=== PATIENT | female | born 1980 | race Caucasian/White ===

== ENCOUNTER 2020-09-20 07:48 | Outpatient (CLI) | payer OTHER, SELFPAY ==
--- NOTE | 2020-09-20 07:53 | MM_ITS ---
WS: [id number] BILATERAL SCREENING DIGITAL MAMMOGRAM WITH CAD HISTORY: SCREENING COMPARISON: 07/28/2019 Bilateral CC and MLO views submitted. Computer aided detection analyzed. Breast composition: There are scattered areas of fibroglandular density. No suspicious masses, microc alcifications or architectural distortion. Benign calcifications in each breast. MM/[place] [id number] IMPRESSION: BI-RADS: 2-Benign FOLLOW UP: 1 Year Follow-up
== END 2020-09-20 07:49 | disposition home or self-care (01) ==
LOC: RADSHAW 07:50
PROVIDERS: PCP Family Medicine; Visit Provider Family Medicine
DX: Z12.31 Encounter for screening mammogram for malignant neoplasm of breast (principal)
CPT/HCPCS: 77067

== ENCOUNTER 2021-01-29 12:45 | Emergency (ER) | payer OTHER, SELFPAY ==
--- NOTE | 2021-01-29 12:53 | XR_ITS ---
WS: [id number] Portable AP upright chest, 01/29/2021 Clinical Data: chest pain Comparison: None. Findings: No nodules, masses or effusions are seen. The heart is normal. The pulmonary vascularity is not increased. No pneumonia or pneumothorax is seen. XR/XR chest 1V portable [id number] Impression: Negative chest.
[2021-01-29 13:21] VITALS: BP 150/89; PULSE 86; RESP 16; TEMP 36.7; O2SAT 98; BMI 37.0
--- NOTE | 2021-01-29 14:53 | ECG_ITS ---
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 Measurements Intervals [place] Rate: 71 P: 32 MN: 137 QRS: 3 QRSD: 84 T: 32 QT: 395 QTc: 432 Interpretive Statements SINUS RHYTHM LOW QRS VOLTAGE IN PRECORDIAL LEADS [QRS DEFLECTION < 1.0 mV IN CHEST LEADS] POSSIBLE ANTERIOR MYOCARDIAL INFARCTION [30 ms Q WAVE IN V3/V4, OR R < 0.2 mV IN V4], PROBABLY OLD No previous ECG available for comparison Electronically Signed On 01-29-2021 16:31:26 CDT by Charlette Guzman M.D. [email or web address]/store/OM/[id number]
--- NOTE | 2021-01-29 16:04 | W.ED.CHESTPA ---
Documented by User: Yehuda Simpson DO 01/31/21 06:35 HPI - Chest Pain General: Chief Complaint: Chest Pain Stated Complaint: chest tightness, heartburn pain Time Seen by Provider: 01/29/21 15:45 History of Present Illness: HPI narrative: 40-year-old female presents emergency room complaining of epigastric and chest pain that began last night around 11:00 it persisted until now she is tried several vyyn-shn-qcillax for heartburn and stomach upset with no relief. He has a family history of early cardiac disease she contacted her primary and advised her to come here. She is on lisinopril for hypertension she is not previously had cardiac evaluation she has no hyperlipidemia. She is not diabetic and does not smoke. MD complaint: chest discomfort Pertinent past history: coronary artery disease (Early family history) Onset (ago): hour(s) Timing of current episode: episodic Prior episodes: No Onset: during rest Pain location: substernal and epigastric Pain radiation: none Severity: mild Quality: tightness Relieving factors: nothing Exacerbating factors: nothing Associated symptoms: Deny abdominal pain, diaphoresis, dyspnea, fever(s), leg edema, nausea, palpitations, sense of impending doom, syncope or vomiting Treatment prior to arrival: none Review of Systems Const: Denies: fever(s) or diaphoresis ENMT: Denies: throat pain, ear or mastoid pain, nasal discharge or nasal congestion Card: Denies: palpitations or syncope Resp: Denies: dyspnea GI: Denies: abdominal pain, nausea or vomiting : Denies: flank pain, difficulty voiding, dysuria, urinary frequency or urinary urgency Skin/Breast: Denies: rash or pruritus [facility] Female Reproductive History: Date of last menstrual period: 01/25/21 Physical Exam Const: COMMON NORMALS: no acute distress GENERAL APPEARANCE: cooperative and comfortable ORIENTATION/CONSCIOUSNESS: Yes awake, Yes oriented to person, Yes oriented to place and Yes oriented to time HENMT: COMMON NORMALS: normocephalic, atraumatic, hearing grossly normal bilaterally and external ears normal HEAD & SCALP: normocephalic and atraumatic EXTERNAL EAR: Yes external ears normal Neck/C-Spine: COMMON NORMALS: no JVD Resp: COMMON NORMALS: normal respiratory effort, No retractions, No use of accessory muscles and clear to auscultation bilaterally AUSCULTATION: clear to auscultation bilaterally Cardio: COMMON NORMALS: no JVD, regular rate, regular rhythm and No murmurs present (Cardio) RATE: regular rate RHYTHM: regular rhythm GI: COMMON NORMALS: Soft to palpation and No hepatosplenomegaly present AUSCULTATION: Yes normoactive bowel sounds PALPATION: Yes Soft to palpation, No Tenderness to palpation present (GI), No Guarding due to palpation present (GI) and Yes No hepatosplenomegaly present Extremity: COMMON NORMALS: normal to inspection, capillary refill normal, no clubbing, cyanosis or edema, no calf tenderness and no pedal edema Neuro: SENSORIUM/ORIENTATION: Yes oriented to person, Yes oriented to place and Yes oriented to time Skin: COMMON NORMALS: no rashes or lesions noted GENERAL SKIN EXAM: no rashes or lesions noted Course Vital Signs: Vital signs: Vital Signs Temperature 98.1 F 01/29/21 21:31 Pulse Rate 64 01/29/21 21:31 Respiratory Rate 19 H 01/29/21 21:31 Blood Pressure 146/92 01/29/21 21:31 Pulse Oximetry 98 01/29/21 21:31 MDM - Chest Pain MDM Narrative: Medical decision making narrative: Patient initially seen by laboratory tests ordered. She is stable EKG unremarkable. Care turned over to Dr. Watson see his notes for final diagnosis and disposition Lab Data: Labs: Lab Results 01/29/21 01/29/21 01/29/21 Range/Units 16:19 16:19 16:19 WBC 7.5 (4.0-10.0) 10^3/ uL RBC 4.71 (4.1-5.3) 10^6/u L Hgb 14.3 (11.5-15.3) g/dL Hct 42.3 (37.0-47.0) % MCV 89.8 (81-99) fL MCH 30.4 (28.0-34.0) pg MCHC 33.8 (30.0-36.0) g/dL RDW 12.7 (12.1-15.1) % Plt Count 361 (130-400) 10^3/c mm MPV 9.3 (7.4-10.4) fL Neut % (Auto) 61.1 % Lymph % (Auto) 30.9 % [place] % (Auto) 5.9 % Eos % (Auto) 1.1 % Baso % (Auto) 0.7 % Neut # (Auto) 4.61 (1.8-7.7) 10^3/u L Lymph # (Auto) 2.3 (0.8-4.8) 10^3/u L [place] # (Auto) 0.4 (0.2-0.9) 10^3/u L Eos # (Auto) 0.1 (0.0-0.8) 10^3/u L Baso # (Auto) 0.1 (0.0-0.1) 10^3/u L Nucleated RBC % (a uto) 0 % Nucleated RBCs # 0.0 /100WBC Sodium Cancelled Potassium Cancelled Chloride Cancelled Carbon Dioxide Cancelled Anion Gap Cancelled BUN Cancelled Creatinine Cancelled GFR Calculation Cancelled Glucose Cancelled Calculated Osmolal ity Cancelled Calcium Cancelled Total Bilirubin Cancelled AST Cancelled ALT Cancelled Alkaline Phosphata se Cancelled Troponin T Baselin e Cancelled Troponin T 120 Min tolowa dee-ni' (0-10) ng/L Delta Troponin T (0-10) ABS# Total Protein Cancelled Albumin Cancelled Globulin Cancelled 01/29/21 01/29/21 01/29/21 Range/Units 17:28 17:28 20:10 WBC (4.0-10.0) 10^3/ uL RBC (4.1-5.3) 10^6/u L Hgb (11.5-15.3) g/dL Hct (37.0-47.0) % MCV (81-99) fL MCH (28.0-34.0) pg MCHC (30.0-36.0) g/dL RDW (12.1-15.1) % Plt Count (130-400) 10^3/c mm MPV (7.4-10.4) fL Neut % (Auto) % Lymph % (Auto) % [place] % (Auto) % Eos % (Auto) % Baso % (Auto) % Neut # (Auto) (1.8-7.7) 10^3/u L Lymph # (Auto) (0.8-4.8) 10^3/u L [place] # (Auto) (0.2-0.9) 10^3/u L Eos # (Auto) (0.0-0.8) 10^3/u L Baso # (Auto) (0.0-0.1) 10^3/u L Nucleated RBC % (a uto) % Nucleated RBCs # /100WBC Sodium 135 L Potassium 4.2 Chloride 101 Carbon Dioxide 22 Anion Gap 16.2 BUN 10 Creatinine 0.6 GFR Calculation 109.6 Glucose 99 Calculated Osmolal ity 279 L Calcium 9.0 Total Bilirubin 0.3 AST 25 ALT 24 Alkaline Phosphata se 53 Troponin T Baselin e 6 Troponin T 120 Min tolowa dee-ni' 6.00 (0-10) ng/L Delta Troponin T 0 (0-10) ABS# Total Protein 6.9 Albumin 4.2 Globulin 2.7 Discharge Plan Discharge Patient Disposition: Home Clinical Impression: Atypical chest pain Condition: Stable Prescriptions: New aspirin 81 mg tablet,delayed release (DR/EC) 81 mg PO DAILY Qty: 30 RF: 0 amlodipine 2.5 mg tablet 2.5 mg PO DAILY Qty: 30 RF: 0 No Action lisinopril 5 mg Tablet 5 mg PO DAILY RF: 0 Discharge Orders: Discharge ED (Routine); Ordered 01/29/21 Ordered By: Rianna Watson Referrals: Deyanira Palumbo MD [Primary Care Provider] - 1-3 days Discharge Diet: Usual diet Discharge Activity: Limit activity as instructed Patient Instructions: Chest Pain (ED) Activity Restrictions/Additional Instructions: Aspirin daily 81 mg, add amlodipine 2.5 p.o. daily. No exertional activities. Case management will call to set up a Lexiscan sestamibi stress test. Coding Level of Care Code ED Make Ready Mechanic for g Fwd Exam Comprehensive Documented by User: Rianna Watson MD 01/29/21 21:23 HPI - Chest Pain General: Chief Complaint: Chest Pain Stated Complaint: chest tightness, heartburn pain Time Seen by Provider: 01/29/21 15:45 Course Vital Signs: Vital signs: Vital Signs Temperature 98.1 F 01/29/21 21:31 Pulse Rate 64 01/29/21 21:31 Respiratory Rate 19 H 01/29/21 21:31 Blood Pressure 146/92 01/29/21 21:31 Pulse Oximetry 98 01/29/21 21:31 MDM - Chest Pain MDM Narrative: Medical decision making narrative: Patient presents here with chest pain is atypical in nature. Her initial repeat troponins and EKGs and x-ray are all normal. She is stable for discharge and is to follow-up with PCP and return if worsening. She understands and agrees to plan. Lab Data: Labs: Lab Results 01/29/21 01/29/21 01/29/21 Range/Units 16:19 16:19 16:19 WBC 7.5 (4.0-10.0) 10^3/ uL RBC 4.71 (4.1-5.3) 10^6/u L Hgb 14.3 (11.5-15.3) g/dL Hct 42.3 (37.0-47.0) % MCV 89.8 (81-99) fL MCH 30.4 (28.0-34.0) pg MCHC 33.8 (30.0-36.0) g/dL RDW 12.7 (12.1-15.1) % Plt Count 361 (130-400) 10^3/c mm MPV 9.3 (7.4-10.4) fL Neut % (Auto) 61.1 % Lymph % (Auto) 30.9 % [place] % (Auto) 5.9 % Eos % (Auto) 1.1 % Baso % (Auto) 0.7 % Neut # (Auto) 4.61 (1.8-7.7) 10^3/u L Lymph # (Auto) 2.3 (0.8-4.8) 10^3/u L [place] # (Auto) 0.4 (0.2-0.9) 10^3/u L Eos # (Auto) 0.1 (0.0-0.8) 10^3/u L Baso # (Auto) 0.1 (0.0-0.1) 10^3/u L Nucleated RBC % (a uto) 0 % Nucleated RBCs # 0.0 /100WBC Sodium Cancelled Potassium Cancelled Chloride Cancelled Carbon Dioxide Cancelled Anion Gap Cancelled BUN Cancelled Creatinine Cancelled GFR Calculation Cancelled Glucose Cancelled Calculated Osmolal ity Cancelled Calcium Cancelled Total Bilirubin Cancelled AST Cancelled ALT Cancelled Alkaline Phosphata se Cancelled Troponin T Baselin e Cancelled Troponin T 120 Min tolowa dee-ni' (0-10) ng/L Delta Troponin T (0-10) ABS# Total Protein Cancelled Albumin Cancelled Globulin Cancelled 01/29/21 01/29/21 01/29/21 Range/Units 17:28 17:28 20:10 WBC (4.0-10.0) 10^3/ uL RBC (4.1-5.3) 10^6/u L Hgb (11.5-15.3) g/dL Hct (37.0-47.0) % MCV (81-99) fL MCH (28.0-34.0) pg MCHC (30.0-36.0) g/dL RDW (12.1-15.1) % Plt Count (130-400) 10^3/c mm MPV (7.4-10.4) fL Neut % (Auto) % Lymph % (Auto) % [place] % (Auto) % Eos % (Auto) % Baso % (Auto) % Neut # (Auto) (1.8-7.7) 10^3/u L Lymph # (Auto) (0.8-4.8) 10^3/u L [place] # (Auto) (0.2-0.9) 10^3/u L Eos # (Auto) (0.0-0.8) 10^3/u L Baso # (Auto) (0.0-0.1) 10^3/u L Nucleated RBC % (a uto) % Nucleated RBCs # /100WBC Sodium 135 L Potassium 4.2 Chloride 101 Carbon Dioxide 22 Anion Gap 16.2 BUN 10 Creatinine 0.6 GFR Calculation 109.6 Glucose 99 Calculated Osmolal ity 279 L Calcium 9.0 Total Bilirubin 0.3 AST 25 ALT 24 Alkaline Phosphata se 53 Troponin T Baselin e 6 Troponin T 120 Min tolowa dee-ni' 6.00 (0-10) ng/L Delta Troponin T 0 (0-10) ABS# Total Protein 6.9 Albumin 4.2 Globulin 2.7 EKG Data^: EKG 1: Attestation: I personally reviewed and interpreted this EKG as follows: EKG interpretation date: 01/29/21 EKG interpretation time: 20:02 Interpretation: nsr hr [address] or t wave abnormalities qrs 93 qtc 394 Discharge Plan Discharge Patient Disposition: Home Clinical Impression: Atypical chest pain Condition: Stable Prescriptions: New aspirin 81 mg tablet,delayed release (DR/EC) 81 mg PO DAILY Qty: 30 RF: 0 amlodipine 2.5 mg tablet 2.5 mg PO DAILY Qty: 30 RF: 0 No Action lisinopril 5 mg Tablet 5 mg PO DAILY RF: 0 Discharge Orders: Discharge ED (Routine); Ordered 01/29/21 Ordered By: Rianna Watson Referrals: Deyanira Palumbo MD [Primary Care Provider] - 1-3 days Discharge Diet: Usual diet Discharge Activity: Limit activity as instructed Patient Instructions: Chest Pain (ED) Activity Restrictions/Additional Instructions: Aspirin daily 81 mg, add amlodipine 2.5 p.o. daily. No exertional activities. Case management will call to set up a Lexiscan sestamibi stress test. Coding Level of Care Code ED Make Ready Mechanic for Chg Fwd Exam Comprehensive
[2021-01-29 16:37] LABS: Basophils # 0.1 10^3/uL (0.0-0.1); Basophils % 0.7 %; Eosinophils # 0.1 10^3/uL (0.0-0.8); Eosinophils % 1.1 %; Hematocrit 42.3 % (37.0-47.0); Hemoglobin 14.3 g/dL (11.5-15.3); Lymphocytes # 2.3 10^3/uL (0.8-4.8); Lymphocytes % 30.9 %; Mean Corpuscular HGB Conc 33.8 g/dL (30.0-36.0); Mean Corpuscular Hemoglobin 30.4 pg (28.0-34.0); Mean Corpuscular Volume 89.8 fL (81-99); Mean Platelet Volume 9.3 fL (7.4-10.4); Monocytes # 0.4 10^3/uL (0.2-0.9); Monocytes % 5.9 %; Neutrophils # 4.61 10^3/uL (1.8-7.7); Neutrophils % 61.1 %; Nucleated Red Blood Cells % 0 %; Platelet Count 361 10^3/cmm (130-400); Red Blood Count 4.71 10^6/uL (4.1-5.3); Red Cell Distribution Width 12.7 % (12.1-15.1); White Blood Count 7.5 10^3/uL (4.0-10.0)
[2021-01-29 17:54] LABS: Troponin(5th) Baseline 6 ng/L (0-10)
[2021-01-29 17:57] LABS: Alanine Aminotransferase 24 U/L (0-33); Albumin Level 4.2 g/dL (3.5-5.2); Alkaline Phosphatase 53 IU/L (35-105); Anion Gap 16.2 (5-19); Aspartate Amino Transferase 25 U/L (0-32); Blood Urea Nitrogen 10 mg/dL (6-20); Carbon Dioxide 22 mmol/L (22-29); Chloride 101 mmol/L (98-107); Globulin 2.7 g/dL (1.3-4.6); Glomerular Filtration Rate 109.6 mL/min (90-130); Glucose 99 mg/dL (65-115); Osmolality Calculated 279 mOsm/kg (285-295); Potassium 4.2 mmol/L (3.5-5.1); Sodium 135 mmol/L (136-145); Total Bilirubin 0.3 mg/dL (0.15-1.2); Total Protein 6.9 g/dL (6.6-8.7)
[2021-01-29 18:32] VITALS: BP 146/95; PULSE 72; RESP 18; O2SAT 100
--- NOTE | 2021-01-29 18:53 | ECG_ITS ---
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 Measurements Intervals [place] Rate: 70 P: 30 [place]: 143 QRS: 7 QRSD: 80 T: 31 QT: 408 QTc: 443 Interpretive Statements SINUS RHYTHM LOW QRS VOLTAGE IN PRECORDIAL LEADS [QRS DEFLECTION < 1.0 mV IN CHEST LEADS] POSSIBLE ANTERIOR MYOCARDIAL INFARCTION [30 ms Q WAVE IN V3/V4, OR R < 0.2 mV IN V4], PROBABLY OLD Compared to ECG 01/29/2021 15:16:06 No significant changes Electronically Signed On 01-29-2021 22:08:22 CDT by Charlette Guzman M.D. [id number]
--- NOTE | 2021-01-29 20:10 | ECG_ITS ---
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 Measurements Intervals [place] Rate: 71 P: 45 CO: 146 QRS: 6 QRSD: 82 T: 42 QT: 399 QTc: 434 Interpretive Statements SINUS RHYTHM WITH SINUS ARRHYTHMIA LOW QRS VOLTAGE IN PRECORDIAL LEADS [QRS DEFLECTION < 1.0 mV IN CHEST LEADS] POSSIBLE ANTERIOR MYOCARDIAL INFARCTION [30 ms Q WAVE IN V3/V4, OR R < 0.2 mV IN V4], PROBABLY OLD Compared to ECG 01/29/2021 17:07:48 No significant changes Electronically Signed On 01-30-2021 17:07:52 CDT by Javier Bonilla M.D. [email or web address]/[id number]
[2021-01-29 20:40] LABS: Troponin 5 2HR Delta 0 ABS# (0-10)
[2021-01-29 21:31] VITALS: BP 146/92; PULSE 64; RESP 19; TEMP 36.7; O2SAT 98
--- NOTE | 2021-01-31 09:54 | DCPLANNER ---
patient case manager had message to schedule an outpatient stress test for patient. patient case manager faxed signed order to centralized scheduling. patient case manager will call for appointment information.
--- NOTE | 2021-02-10 07:17 | DCPLANNER ---
Patient has an out patient stress test scheduled for Friday, February 26, 2021 at 1:00.
--- NOTE | 2021-04-10 11:31 | DCPLANNER ---
pancho had a follow up appointment for an out patient stress test scheduled for 02.26.21 - this was cancelled.
== END 2021-01-29 21:34 | disposition home or self-care (01) ==
PROVIDERS: Family Medicine; Physician Assistant; Emergency Provider Emergency Medicine; PCP Family Medicine
DX: R07.89 Other chest pain (principal)
CPT/HCPCS: 36415; 71045; 80053; 84484; 85025; 93005; 99283

== ENCOUNTER → 2025-04-16 15:59 | Outpatient (BNVA) | payer OTHER, SELFPAY | PROVIDERS: PCP Family Medicine; Visit Provider Family Medicine | DX: Z00.00 Encounter for general adult medical examination without abnormal findings (principal) | CPT/HCPCS: 80053; 80061; 84443; 85025 ==

== ENCOUNTER 2025-04-20 16:09 | Outpatient (CLI) | payer OTHER, SELFPAY ==
--- NOTE | 2025-04-20 16:15 | USR_ITS ---
PROCEDURE INFORMATION: Exam: US Pelvis, Complete, Non-Obstetric Exam date and time: 04/20/2025 4:54 PM Age: 44 years old Clinical indication: Menstruation abnormalities; Excessive menstruation; With irregular cycle; Additional info: Menometrorrhagia TECHNIQUE: Imaging protocol: Transabdominal pelvic nonobstetric ultrasound. Complete exam. Real time ultrasound with image documentation. COMPARISON: No relevant prior studies available. FINDINGS: Uterus: Uterus is enlarged measuring 11.4 x 5.9 x 5.8 cm (207 mL). Uterus is normal in morphology without focal lesion. Endometrial stripe is diffusely borderline thickened measuring 1.9 cm in thickness, without detected focal lesion or abnormal vascularity on color Doppler. Right ovary/adnexa: Ovary is normal. No mass. Left ovary/adnexa: Ovary is normal. No mass. Intraperitoneal space: No intraperitoneal fluid. Urinary bladder: Unremarkable. Other findings: LMP 03/11/2025. US/US pelvic complete* [id number] IMPRESSION: Endometrial stripe is diffusely borderline thickened measuring 1.9 cm in thickness, without detected focal lesion or abnormal vascularity.
== END 2025-04-20 16:10 | disposition home or self-care (01) ==
LOC: RAD 16:13
PROVIDERS: PCP Family Medicine; Visit Provider Family Medicine
DX: N92.1 Excessive and frequent menstruation with irregular cycle (principal); R93.89 Abnormal findings on diagnostic imaging of other specified body structures; N85.2 Hypertrophy of uterus
CPT/HCPCS: 76856

== ENCOUNTER 2025-05-04 08:08 | Outpatient (CLI) | payer OTHER, SELFPAY ==
--- NOTE | 2025-05-04 08:20 | MM_ITS ---
WS: [id number] BILATERAL SCREENING DIGITAL TOMOSYNTHESIS MAMMOGRAM WITH CAD HISTORY: screening COMPARISON: 09/20/2020, 07/28/2019 Bilateral CC and MLO views with tomosynthesis and synthetic mammography submitted. Computer aided detection analyzed. Breast composition: There are scattered areas of fibroglandular density. No suspicious masses, microcalcifications or architectural distortion. Benign calcifications in each breast. MM/MM scr BI tomosynthesis [id number] IMPRESSION: BI-RADS: 2 - Benign. FOLLOW UP: 1 Year Follow-up
== END 2025-05-04 08:09 | disposition home or self-care (01) ==
LOC: RAD 08:09
PROVIDERS: PCP Family Medicine; Visit Provider Family Medicine
DX: Z12.31 Encounter for screening mammogram for malignant neoplasm of breast (principal); R92.323 Mammographic fibroglandular density, bilateral breasts; R92.1 Mammographic calcification found on diagnostic imaging of breast
CPT/HCPCS: 77063; 77067